=== PATIENT | female | born 1980 | race Caucasian/White ===

== ENCOUNTER 2017-03-21 10:04 | Emergency (ER) | payer BC ==
[~2017-03-21] VITALS: Ht 167.6 cm; Wt 57.2 kg
[2017-03-21 10:19] VITALS: TEMP 36.4; Ht 167.6 cm; Wt 57.2 kg
[2017-03-21] MEDS ORDERED: KETOROLAC TROMETHAMINE 30 MG/ML VIAL IV STA (10:25)
[2017-03-21] MEDS ORDERED: SODIUM CHLORIDE 0.9% 1000ML 1,000 ML IV STA (10:25)
[2017-03-21] MEDS ORDERED: ONDANSETRON INJ 2 MG/ML 2 ML VIAL IV STA (10:25)
[2017-03-21] MEDS ORDERED: HYDROmorphone INJ 1 MG/ML SYR IV STA (10:25)
--- NOTE | 2017-03-21 10:41 | EMERGENCY ROOM VISIT NOTE ---
History Report prepared by Miladis: Jim Cardona Under the Supervision of: Dr. Rajesh Llanos M.D. First contact with patient: 10:23 Chief Complaint: FLANK PAIN Stated Complaint: SEVERE PAIN ON RT SIDE/BACK History of Present Illness The patient is a 37 year old female who presents to the Emergency Room with complaints of worsening sharp right flank pain that started earlier today. She rates her discomfort as a 10/10 in severity. The patient states that her flank pain started suddenly today and had improved throughout the day but recently worsened again. The patient admits to a previous kidney infection, but denies any history of a kidney calculus. She admits that her last normal menstrual period was earlier this month and denies any possibility of . Source of History: patient Onset: today Position: other (right flank) Symptom Intensity: 10/10 Quality: sharp Timing: worsening Review of Systems See HPI for pertinent positives & negatives. A total of 10 systems reviewed and were otherwise negative. Past Medical & Surgical Medical Problems: (1) Kidney infection Family History Patient reports no known family medical history. Social History Smoking Status: Never Smoker Smokeless Tobacco Use: No Occupation Status: employed Current/Historical Medications Scheduled Multiple Vitamin (Multivitamin), 1 TAB PO DAILY Tamsulosin Hcl (Flomax), 0.4 MG PO DAILY Scheduled PRN Oxycodone/Acetaminophen 5MG/325MG (Percocet 5MG/325MG), 1-2 TAB PO Q4H PRN for Pain Allergies Coded Allergies: No Known Allergies (Unverified , 03/21/17) Physical Exam Vital Signs Date Time Temp Pulse Resp B/P (MAP) Pulse Ox O2 Delivery O2 Flow Rate FiO2 03/21/17 12:53 67 18 114/76 98 03/21/17 10:19 36.4 81 22 97/69 99 Room Air Physical Exam GENERAL: Patient is a healthy-appearing well-nourished 37 year old female. HEAD: Normocephalic atraumatic EYES: Ocular movements intact pupils equal and react to light OROPHARYNX mucous membranes are moist no exudates present no erythema or edema present NECK: Supple no nuchal rigidity CHEST: Good equal expansion LUNGS: Clear and equal to auscultation CARDIAC: Normal S1 and S2 ABDOMEN: Soft nontender no guarding BACK: No CVA tenderness EXTREMITIES: No pain upon palpation normal muscle strength in all groups no clubbing cyanosis or edema NEURO: Patient is following commands and answering questions appropriately. Alert and oriented x3 Cranial Nerves 2-12 grossly intact Medical Decision & Procedures ER Provider Diagnostic Interpretation: CT results as stated below per my review and radiologist interpretation: CT OF THE ABDOMEN AND PELVIS WITHOUT CONTRAST, STONE PROTOCOL CLINICAL HISTORY: Right flank pain. COMPARISON STUDY: None. TECHNIQUE: Helical axial images of the abdomen and pelvis were obtained without IV or oral contrast according to renal stone protocol. A dose lowering technique was utilized adhering to the principles of ALARA. FINDINGS: There is moderate right hydroureteronephrosis. A 4 mm right pelvic calcification shown on image 321 of 403 likely reflects a distal right ureteral calculus. There are numerous punctate bilateral renal calculi. There are no left ureteral calculi. Left pelvic calcifications likely reflect phleboliths although the course of the left ureter is difficult to follow on this exam. Unenhanced images of the liver, spleen, adrenal glands and pancreas are normal. There is no evidence for a bowel obstruction. There is no lymphadenopathy. The appendix is normal. No suspicious skeletal lesions are identified. IMPRESSION: 1. Moderate right hydroureteronephrosis, likely due to a 4 mm distal right ureteral calculus. The course of the right ureter is difficult to follow on this exam although a ureteral calculus is favored over a phlebolith. 2. Numerous punctate bilateral renal calculi. Electronically signed by: Yariel Mckinnon M.D. 03/21/2017 12:06 PM Dictated Date/Time: 03/21/2017 11:58 AM Laboratory Results 03/21/17 10:35 Red Blood Count 4.33, Mean Corpuscular Volume 94.0, Mean Corpuscular Hemoglobin 32.1, Mean Corpuscular Hemoglobin Concent 34.2, Mean Platelet Volume 9.0, Neutrophils (%) (Auto) 72.2, Lymphocytes (%) (Auto) 19.3, Monocytes (%) (Auto) 8.0, Eosinophils (%) (Auto) 0.3, Basophils (%) (Auto) 0.2, Neutrophils # (Auto) 4.45, Lymphocytes # (Auto) 1.19, Monocytes # (Auto) 0.49, Eosinophils # (Auto) 0.02, Basophils # (Auto) 0.01 03/21/17 10:35 Test 03/21/17 10:25 03/21/17 10:35 Urine Color YELLOW Urine Appearance CLEAR (CLEAR) Urine pH 5.5 (4.5-7.5) Urine Specific [place] 1.012 (1.000-1.030) Urine Protein NEG (NEG) Urine Glucose (UA) NEG (NEG) Urine Ketones NEG (NEG) Urine Occult Blood 3+ (NEG) Urine Nitrite NEG (NEG) Urine Bilirubin NEG (NEG) Urine Urobilinogen NEG (NEG) Urine Leukocyte Esterase NEG (NEG) Urine WBC (Auto) 1-5 /hpf (0-5) Urine RBC (Auto) >30 /hpf (0-4) Urine Hyaline Casts (Auto) 1-5 /lpf (0-5) Urine Epithelial Cells (Auto) >30 /lpf (0-5) Urine Bacteria (Auto) 1+ (NEG) Urine Test NEG (NEG) White Blood Count 6.16 K/uL (4.8-10.8) Red Blood Count 4.33 M/uL (4.2-5.4) Hemoglobin 13.9 g/dL (12.0-16.0) Hematocrit 40.7 % (37-47) Mean Corpuscular Volume 94.0 fL (80-100) Mean Corpuscular Hemoglobin 32.1 pg (25-34) Mean Corpuscular Hemoglobin Concent 34.2 g/dl (32-36) Platelet Count 220 K/uL (130-400) Mean Platelet Volume 9.0 fL (7.4-10.4) Neutrophils (%) (Auto) 72.2 % Lymphocytes (%) (Auto) 19.3 % Monocytes (%) (Auto) 8.0 % Eosinophils (%) (Auto) 0.3 % Basophils (%) (Auto) 0.2 % Neutrophils # (Auto) 4.45 K/uL (1.4-6.5) Lymphocytes # (Auto) 1.19 K/uL (1.2-3.4) Monocytes # (Auto) 0.49 K/uL (0.11-0.59) Eosinophils # (Auto) 0.02 K/uL (0-0.5) Basophils # (Auto) 0.01 K/uL (0-0.2) RDW Standard Deviation 39.5 fL (36.4-46.3) RDW Coefficient of Variation 11.6 % (11.5-14.5) Immature Granulocyte % (Auto) 0.0 % Immature Granulocyte # (Auto) 0.00 K/uL (0.00-0.02) Anion Gap 7.0 mmol/L (3-11) Est Creatinine Clear Calc Drug Dose 79.2 ml/min Estimated GFR () 97.9 Estimated GFR (Non- 84.5 BUN/Creatinine Ratio 17.6 (10-20) Calcium Level 8.9 mg/dl (8.5-10.1) Total Bilirubin 0.5 mg/dl (0.2-1) Direct Bilirubin 0.1 mg/dl (0-0.2) Aspartate Amino Transf (AST/SGOT) 20 U/L (15-37) Alanine Aminotransferase (ALT/SGPT) 21 U/L (12-78) Alkaline Phosphatase 53 U/L (45-117) Total Protein 7.9 gm/dl (6.4-8.2) Albumin 4.2 gm/dl (3.4-5.0) Lipase 153 U/L (73-393) Labs reviewed by ED physician. Medications Administered Medications (Trade) Dose Ordered Sig/Jayme Route Start Time Stop Time Status Last Admin Dose Admin Sodium Chloride 1,000 ml @ 999 mls/hr Q1H1M STAT IV 03/21/17 10:25 03/21/17 11:25 DC 03/21/17 10:57 999 MLS/HR Ketorolac Tromethamine (Toradol Inj) 30 mg NOW STAT IV 03/21/17 10:25 03/21/17 10:26 DC 03/21/17 10:56 30 MG Ondansetron HCl (Zofran Inj) 4 mg NOW STAT IV 03/21/17 10:25 03/21/17 10:26 DC 03/21/17 10:55 4 MG Hydromorphone HCl (Dilaudid Inj) 1 mg NOW STAT IV 03/21/17 10:25 03/21/17 10:26 DC 03/21/17 10:57 1 MG Tamsulosin HCl (Flomax Cap) 0.4 mg NOW STAT PO 03/21/17 12:18 03/21/17 12:19 DC 03/21/17 12:51 0.4 MG ED Course 1021: Past medical records reviewed. The patient was evaluated in room B06. A complete history and physical examination was performed. 1025: Dilaudid Injection 1 mg IV, Zofran Injection 4 mg IV, Toradol Injection 30 mg IV, Sodium Chloride 1000 ml @ 999 mls/hr IV. 1218: Flomax Cap .4 mg PO. 1220: Upon reexamination the patient is resting comfortably. I discussed results and treatment plan with the patient. She verbalizes agreement and understanding. The patient is ready for discharge. Medical Decision The differential diagnosis: etiologies such as appendicitis, diverticulitis, PUD , biliary pathology, UTI, pancreatitis, obstruction, mesenteric ischemia, aortic pathology, infections, inflammatory bowel disease, renal colic, as well as others were entertained. Medication Reconciliation: I attest that I have personally reviewed the patient' s current medication list Blood Pressure Screening: Patient was found to have normal blood pressure on screening and does not require follow up. This is a 37-year-old female who presents emergency department complaining of right-sided flank pain. The patient does have a 4 mm stone on CAT scan. The patient is not she does not have an elevation in her white blood count cell count and she is afebrile. Based on these findings I feel the patient can most likely be sent home. IV was established, patient given normal saline bolus , Dilaudid, Toradol. Repeat examination revealed improvement the patient's symptoms. I do believe that the patient is well enough to be discharged home. She was given Flomax as well as Percocet for the pain. She'll follow-up with urology. Patient was in agreement with the treatment plan. Medication Reconcilliation Current Medication List: was personally reviewed by me Impression Primary Impression: Kidney stone Scribe Attestation The scribe's documentation has been prepared under my direction and personally reviewed by me in its entirety. I confirm that the note above accurately reflects all work, treatment, procedures, and medical decision making performed by me. Medication Reconciliation: I attest that I have personally reviewed the patient' s current medication list Departure Information Dispostion Home / Self-Care Prescriptions Tamsulosin Hcl (FLOMAX) 0.4 Mg Cap 0.4 MG PO DAILY for 7 Days, #7 CAP Prov: Rajesh Llanos MD 03/21/17 Oxycodone/Acetaminophen 5MG/325MG (PERCOCET 5MG/325MG) Tab 1-2 TAB PO Q4H Y for Pain, #14 TAB Prov: Rajesh Llanos MD 03/21/17 Referrals Urmila Finnegan D.O. (PCP) Forms HOME CARE DOCUMENTATION FORM, IMPORTANT VISIT INFORMATION Patient Instructions Kidney Stones - [facility], Kidney Stones Expectant Therapy, Kidney Stones Prevent, Kidney Stones Risk, My [facility] Additional Instructions Follow up with DR Swift's office You received narcotic or benzodiazepene medication while in the emergency room today. Do not drive, operate heavy machinery, or drink alcohol under the influence of this medication. Take 600 mg Ibuprofen every 6 hours Take Percocet for breakthrough pain You have been examined and treated today on an emergency basis only. This is not a substitute for, or an effort to provide, complete comprehensive medical care. It is impossible to recognize and treat all injuries or illnesses in a single emergency department visit. It is therefore important that you follow up closely with Dr Finnegan. Call as soon as possible for an appointment. Thank you for your time and consideration. I look forward to speaking with you again soon. Please don't hesitate to call us if you have any questions.
[2017-03-21 10:45] LABS: HEMATOCRIT 40.7 % (37-47); MEAN CORPUSCULAR HEMOGLOBIN 32.1 pg (25-34); MEAN CORPUSCULAR HGB CONC 34.2 g/dl (32-36); PLATELET COUNT 220 K/uL (130-400); RED BLOOD COUNT 4.33 M/uL (4.2-5.4); WHITE BLOOD COUNT 6.16 K/uL (4.8-10.8)
[2017-03-21 10:59] LABS: URINE APPEARANCE CLEAR (CLEAR); URINE BILIRUBIN NEG (NEG); URINE COLOR YELLOW; URINE EPITHELIAL CELL AUTO >30 /lpf (0-5); URINE NITRITE NEG (NEG); URINE PH 5.5 (4.5-7.5); URINE SPECIFIC GRAVITY 1.012 (1.000-1.030); UROBILINOGEN NEG (NEG)
[2017-03-21 11:03] LABS: BUN/CREATININE RATIO 17.6 (10-20); CALCIUM 8.9 mg/dl (8.5-10.1); CREATININE 0.87 mg/dl (0.60-1.20); POTASSIUM 3.3 mmol/L (3.5-5.1)
[2017-03-21 11:04] LABS: MANUAL MICROSCOPIC REQUIRED? NO; REVIEW REQ? NO
[2017-03-21 11:05] LABS: BASO % 0.2 %; BASO ABS # 0.01 K/uL (0-0.2); COMPLETE YES; EOS % 0.3 %; LYMPH % 19.3 %; LYMPH ABS # 1.19 K/uL (1.2-3.4); NEUT % 72.2 %
--- NOTE | 2017-03-21 12:07 | DIAGNOSTIC IMAGING REPORT ---
CT OF THE ABDOMEN AND PELVIS WITHOUT CONTRAST, STONE PROTOCOL CLINICAL HISTORY: Right flank pain. COMPARISON STUDY: None. TECHNIQUE: Helical axial images of the abdomen and pelvis were obtained without IV or oral contrast according to renal stone protocol. A dose lowering technique was utilized adhering to the principles of ALARA. FINDINGS: There is moderate right hydroureteronephrosis. A 4 mm right pelvic calcification shown on image 321 of 403 likely reflects a distal right ureteral calculus. There are numerous punctate bilateral renal calculi. There are no left ureteral calculi. Left pelvic calcifications likely reflect phleboliths although the course of the left ureter is difficult to follow on this exam. Unenhanced images of the liver, spleen, adrenal glands and pancreas are normal. There is no evidence for a bowel obstruction. There is no lymphadenopathy. The appendix is normal. No suspicious skeletal lesions are identified. IMPRESSION: 1. Moderate right hydroureteronephrosis, likely due to a 4 mm distal right ureteral calculus. The course of the right ureter is difficult to follow on this exam although a ureteral calculus is favored over a phlebolith. 2. Numerous punctate bilateral renal calculi. Electronically signed by: Yariel Mckinnon M.D. 03/21/2017 12:06 PM Dictated Date/Time: 03/21/2017 11:58 AM
[2017-03-21] MEDS ORDERED: TAMSULOSIN HCL 0.4 MG CAP PO STA (12:18)
[2017-03-21] MEDS ORDERED: OXYC-57 PO (12:19)
[2017-03-21] MEDS ORDERED: TAMS0.4C38 PO (12:19)
[2017-03-21] MEDS ORDERED: MULTTAB58 PO (12:21)
[2017-03-21 12:53] VITALS: BP 114/76; PULSE 67; O2SAT 98
== END 2017-03-21 12:55 | disposition home or self-care (01) ==
LOC: C.EDB 10:05
DX: N20.0 Calculus of kidney (principal); N13.2 Hydronephrosis with renal and ureteral calculous obstruction